=== PATIENT | female | born 1990 | race Caucasian/White ===

== ENCOUNTER 2017-05-31 11:15 | Emergency (ER) | payer OTHER ==
--- NOTE | 2017-05-31 11:51 | ED Physician Chart ---
Chief Complaint/HPI - Patient Information Date Seen:: 05/31/17 Time Seen:: 11:47 Chief Complaint:: abd p History of Present Illness:: pt began w rt side abd pain wed of last week. noted pain most when lying in bed has ache at rt side worse w mvt. no fever. no n/v/d. no constipation. no dysuria. lmp 2 wks ago was nrml...always has heavy menses w clots..never been dxd w fibroids/endometriosis. no back pain. no weakness. no abd sx hx. or hx of gallbladder troubles. pt took tylenol for MIRAMONTES last nt but no pain meds (or other meds) today Allergies:: Allergies Allergy/AdvReac Type Severity Reaction Status Date / Time No Known Allergies Allergy Verified 05/31/17 11:24 Vitals:: Vital Signs - 8 hr 05/31/17 11:25 Temp 98.3 F HR 84 RR 16 BP 131/81 O2 Sat % 100 Historian:: Patient Review of Systems - Review of Systems General/Constitutional: No fever, No chills, No weight loss, No weakness, No diaphoresis, No edema, No loss of appetite Skin: No skin lesions, No rash, No bruising Head: No headache, No light-headedness Eyes: No loss of vision, No pain, No diplopia ENT: No earache, No nasal drainage, No sore throat, No tinnitus Neck: No neck pain, No swelling, No thyromegaly, No stiffness, No mass noted Cardio Vascular: No chest pain, No palpitations, No PND, No orthopnea, No edema Pulmonary: No SOB, No cough, No sputum, No wheezing GI: No nausea, No vomiting, No diarrhea, Pain, No melena, No hematochezia, No constipation, No hematemesis G/U: No dysuria, No frequency, No hematuria Musculoskeletal: No bone or joint pain, No back pain, No muscle pain Endocrine: No polyuria, No polydipsia Psychiatric: No prior psych history, No depression, No anxiety, No suicidal ideation Hematopoietic: No bruising, No lymphadenopathy Allergic/Immuno: No urticaria, No angioedema Neurological: No syncope, No focal symptoms, No weakness, No paresthesia, No headache, No seizure, No dizziness, No confusion, No vertigo Past Medical History - Past Medical History Past Medical History: No significant medical hx Social History: Employed ( [employer] [place] [employer] employee) Medication: Reviewed Family Medical History - Family Member Father Hx Family Diabetes: Yes Physical Exam - Physical Examination General/Constitutional: Awake, Well-developed, well-nourished, Alert, No distress, GCS 15, Non-toxic appearing, Ambulatory Other Gen/Cons comments:: wn/wh, mild overwt. nontoxic. alert. Head: Atraumatic Eyes: Lids, conjuctiva normal, PERRL, EOMI Skin: Nl inspection, No rash, No skin lesions, No ecchymosis, Well hydrated, No lymphadenopathy ENMT: External ears, nose nl, Nasal exam nl, Lips, teeth, gums nl Neck: Nontender, Full ROM w/o pain, No JVD, No nuchal rigidity, No bruit, No mass, No stridor Respiratory: Nl effort/Exclusion, Clear to Auscultation, No Wheeze/Rhonchi/Rales Cardio Vascular: RRR, No murmur, gallop, rubs, NL S1 S2 GI: No organomegaly, No hernia, Normal BS's, Nondistended, No mass/bruits, No McBurney tenderness Other GI comments:: vague tndr to left upper and lower abd. pos nabs. no rebound. no masses. ? if slt schmidt sign. : No CVA tenderness Extremities: No tenderness or effusion, Full ROM, normal strength in all extremities, No edema, Normal digits & nails Neuro/Psych: Alert/oriented, DTR's symmetric, Normal sensory exam, Normal motor strength, Judgement/insight normal, Mood normal, Normal gait, No focal deficits Misc: normal gait, Normal back, No paraspinal tenderness Labs/Radiology/EKG Results - Lab Results Results: Laboratory Tests 05/31/17 05/31/17 05/31/17 11:50 11:50 11:54 WBC 6.7 RBC 5.00 Hgb 12.5 Hct 38.9 MCV 77.8 L MCH 24.9 L MCHC Differential 32.0 RDW 15.3 Plt Count 246 MPV 7.3 Neutrophils % 59.5 Lymphocytes % 32.6 Monocytes % 6.2 Eosinophils % 1.0 Basophils % 0.7 Sodium Potassium Chloride Carbon Dioxide Anion Gap BUN Creatinine Est GFR ( Amer) Est GFR (Non-Af Amer) BUN/Creatinine Ratio Glucose Calcium Total Bilirubin AST ALT Alkaline Phosphatase Total Protein Albumin Globulin Albumin/Globulin Ratio Lipase Urine Source CLEAN C Urine Color YELLOW Urine Clarity SL. CLOUDY Urine pH 6.5 Ur Specific [place] 1.015 Urine Protein NEGATIVE Urine Glucose (UA) NEGATIVE Urine Ketones NEGATIVE Urine Blood NEGATIVE Urine Nitrate NEGATIVE Urine Bilirubin NEGATIVE Urine Urobilinogen 0.2 Ur Leukocyte Esterase NEGATIVE Urine RBC NONE SEEN Urine WBC NONE SEEN Ur Epithelial Cells FEW Urine Bacteria FEW Urine Test NEGATIVE 05/31/17 11:54 WBC RBC Hgb Hct MCV MCH MCHC Differential RDW Plt Count MPV Neutrophils % Lymphocytes % Monocytes % Eosinophils % Basophils % Sodium 136 Potassium 3.8 Chloride 104 Carbon Dioxide 26.3 Anion Gap 9.5 BUN 9 Creatinine 0.5 L Est GFR ( Amer) > 60.0 Est GFR (Non-Af Amer) > 60.0 BUN/Creatinine Ratio 18.0 Glucose 93 Calcium 9.5 Total Bilirubin 0.5 AST 14 ALT 19 Alkaline Phosphatase 129 H Total Protein 7.2 Albumin 4.2 Globulin 3.0 Albumin/Globulin Ratio 1.4 Lipase 23 Urine Source Urine Color Urine Clarity Urine pH Ur Specific [place] Urine Protein Urine Glucose (UA) Urine Ketones Urine Blood Urine Nitrate Urine Bilirubin Urine Urobilinogen Ur Leukocyte Esterase Urine RBC Urine WBC Ur Epithelial Cells Urine Bacteria Urine Test - Radiology Results Results: us abd no ks, no gb dz, NAD?nrml. US pelvis- 3 ovarian cysts on right and 1 fibroid of uterous largest cyst 3.1cm. no sign of appy or inflamation in rlq. ED Septic Shock - . Is Septic Shock (SBP<90, OR Lactate>4 mmol\L) present?: No - <6hrs of presentation: Vital Signs: Vital Signs - 8 hr 05/31/17 11:25 Temp 98.3 F HR 84 RR 16 BP 131/81 O2 Sat % 100 Reassessment (Disposition) - Reassessment Reassessment:: results reviewed w pt. she asks for bcp rx as she wants to get started and wont see pmd till 2wks. also wedding is approaching in august and she wants to be out of sync w wedding by that time... rx ortho-novum x 2 mo supply. advise pt see pmd in 1-2 wks. or return if worse pain and fever or n/v/d..or else worse. sx of elvia kumar pt. Reassessment Condition:: Unchanged - Diagnosis Diagnosis:: 1 rt side adnexa x 3 ovarian cysts 2 endometriosis 3 abdominal pain - Aftercare/Follow up Instructions Aftercare/Follow-Up Instructions:: Counseled pt regarding lab results/diagnosis & need follow up - Patient Disposition Discharge/Transfer:: Home Condition at Disposition:: Improved
[2017-05-31 12:03] LABS: % BASOPHILS 0.7 % (0.0-2.0); % LYMPHOCYTES 32.6 % (20.0-50.0); % MONOCYTES 6.2 % (2.0-10.0); % NEUTROPHILS 59.5 % (40.0-80.0); HEMATOCRIT 38.9 % (35.0-45.0); HEMOGLOBIN 12.5 gm/dL (11.7-15.5); MEAN CELL VOLUME 77.8 fl (81-100); MEAN CORPUSCULAR HEMOGLOBIN 24.9 pg (27.0-31.0); MEAN PLATELET VOLUME 7.3 fl; PLATELET COUNT 246 Th/cmm (150-400); RED CELL DISTRIBUTION WIDTH 15.3 % (11.5-20.0); WHITE BLOOD COUNT 6.7 Th/cmm (4.8-10.8)
[2017-05-31 12:08] LABS: URINE BILIRUBIN NEGATIVE (NEGATIVE); URINE BLOOD NEGATIVE (NEGATIVE); URINE GLUCOSE (UA) NEGATIVE (NEGATIVE); URINE KETONE NEGATIVE (NEGATIVE); URINE PH 6.5 (4.6 - 8.0); URINE PROTEIN NEGATIVE (NEGATIVE); URINE UROBILINOGEN 0.2 E.U./dL (0.2 - 1.0)
[2017-05-31 12:13] LABS: URINE COLOR YELLOW
[2017-05-31 12:19] LABS: ALB/GLOB RATIO 1.4 (1.0-1.8); ALKALINE PHOSPHATASE 129 U/L (34-104); ANION GAP 9.5 (7.0-16.0); BILIRUBIN,TOTAL 0.5 mg/dL (0.3-1.0); BUN - UREA NITROGEN 9 mg/dL (7-25); CALCIUM SERUM 9.5 mg/dL (8.6-10.3); CARBON DIOXIDE 26.3 mEq/L (21.0-31.0); CHLORIDE 104 mEq/L (98-107); CREATININE - SERUM 0.5 mg/dL (0.6-1.2); GLUCOSE 93 mg/dL (70-105); LIPASE 23 U/L (11-82); POTASSIUM SERUM 3.8 mEq/L (3.5-5.1); SGOT 14 U/L (13-39); SGPT/ALT 19 U/L (7-52); SODIUM SERUM 136 mEq/L (136-145)
[2017-05-31 12:19] LABS: URINE BACTERIA FEW /hpf (NONE SEEN); URINE EPITHELIAL CELLS FEW /lpf (FEW); URINE RBC NONE SEEN /hpf (0-5); URINE WBC NONE SEEN /hpf (0-5)
--- NOTE | 2017-05-31 14:21 | Diagnostic Imaging Report ---
Ultrasound abdomen HISTORY: Right flank pain for 6 days COMPARISON: Pelvic ultrasound the same day Technique: Sonography of the abdomen was performed in multiple planes. FINDINGS: The liver demonstrates normal echogenicity with no evidence of focal lesions. The liver measures 15 cm. No evidence of gallstones or gallbladder wall thickening. The common bile duct measures 3 mm. Evaluation of the pancreas is limited due to bowel gas. The right kidney measures 9.9 cm. There is fullness of the right renal collecting system without evidence of antony hydronephrosis. No sonographic evidence of renal stones. The left kidney measures 9.7 cm. No evidence of focal lesions or hydronephrosis. The spleen measures 10.2 cm. The visualized portions of the abdominal aorta are within normal limits in size. IMPRESSION: Fullness of the right renal collecting system without evidence of antony hydronephrosis. No sonographic evidence of renal stones. If necessary CT follow-up may also be obtained. No evidence of gallstones.
--- NOTE | 2017-05-31 14:31 | Diagnostic Imaging Report ---
Ultrasound pelvis HISTORY: Right-sided abdominal pain. LMP is 05/26/2017 COMPARISON: None Technique: Longitudinal and transverse sonographic sector images of the pelvis were obtained transabdominally and transvaginally. FINDINGS: The uterus measures 8.6 x 4.4 x 3.7 cm. Endometrial echo complex measures 6 mm. There is a hypoechoic area within the fundal portion of uterus measuring 1.7 cm. There is trace fluid in the endocervical canal. The right ovary measures 4.8 x 3.6 cm. Multiple right ovarian cystic lesions are seen the largest measuring 3.1 cm with internal echoes. The left ovary measures 1.9 x 1.5 cm demonstrate small follicular cysts. Vascular flow to ovaries is noted. No evidence of free fluid in the pelvis. IMPRESSION: Multiple Right ovarian cystic lesions the largest measuring 3.1 cm. Internal echoes may be due to proteinaceous or hemorrhagic components. Other less likely etiologies include an endometrioma. Clinical correlation and short-term follow-up with short-term follow-up ultrasound in 4 to 6 weeks is recommended to ensure resolution of these findings and to exclude much less likelihood of cystic neoplastic processes. 1.7 cm heterogeneous area along the fundal portion of uterus. A small fibroid cannot be excluded. Trace fluid in the endocervical canal. No evidence of free fluid in the pelvis.
== END 2017-05-31 14:33 | disposition home or self-care (01) ==
LOC: ER 11:15
DX: N83.201 Unspecified ovarian cyst, right side (principal); N80.9 Endometriosis, unspecified; R10.12 Left upper quadrant pain; R10.32 Left lower quadrant pain
CPT/HCPCS: 36415-UA; 76700-TC; 76856-TC; 80053-TC; 81001-TC; 81025-TC; 83690-TC; 85025-TC

== ENCOUNTER 2019-03-30 06:39 | Outpatient (CLI) | payer OTHER ==
[2019-03-30 06:55] LABS: URINE SOURCE CLEAN C
[2019-03-30 07:17] LABS: % BASOPHILS 0.9 % (0.0-2.0); % LYMPHOCYTES 37.2 % (20.0-50.0); % MONOCYTES 5.8 % (2.0-10.0); % NEUTROPHILS 55.1 % (40.0-80.0); BASOPHILE ABSOLUTE 0.1 Th/cumm (0-0.2); EOSINOPHILE ABSOLUTE 0.1 Th/cmm (0.1-0.4); HEMATOCRIT 42.1 % (41.0-60); HEMOGLOBIN 14.1 gm/dL (12-16); LYMPHOCYTE ABSOLUTE 2.5 Th/cmm (1.5-3.0); MEAN CELL VOLUME 83.5 fl (81-100); MEAN CORPUSCULAR HGB CONC 33.5 pg (28.0-36.0); MONOCYTE ABSOLUTE 0.4 Th/cmm (0.3-1.0); NEUTROPHILE ABSOLUTE 3.7 Th/cmm (1.8-8.0); PLATELET COUNT 249 Th/cmm (150-400); RED BLOOD COUNT 5.03 Mil/cmm (3.80-5.10); RED CELL DISTRIBUTION WIDTH 12.8 % (11.5-20.0); WHITE BLOOD COUNT 6.8 Th/cmm (4.8-10.8)
[2019-03-30 07:39] LABS: URINE BILIRUBIN NEGATIVE (NEGATIVE); URINE BLOOD NEGATIVE (NEGATIVE); URINE GLUCOSE (UA) NEGATIVE (NEGATIVE); URINE KETONE NEGATIVE (NEGATIVE); URINE LEUKOCYTE ESTERASE NEGATIVE (NEGATIVE); URINE NITRATE NEGATIVE (NEGATIVE); URINE PROTEIN NEGATIVE (NEGATIVE); URINE UROBILINOGEN 0.2 E.U./dL (0.2 - 1.0)
[2019-03-30 07:50] LABS: ALB/GLOB RATIO 1.6 (1.0-1.8); ALBUMIN 4.2 gm/dL (3.7-5.3); ALKALINE PHOSPHATASE 125 U/L (34-104); ANION GAP 12.1 (7.0-16.0); BILIRUBIN,TOTAL 0.4 mg/dL (0.3-1.0); BUN - UREA NITROGEN 12 mg/dL (7-25); CALCIUM SERUM 9.3 mg/dL (8.6-10.3); CARBON DIOXIDE 25.6 mEq/L (21.0-31.0); CHLORIDE 104 mEq/L (98-107); CHOLESTEROL 213 mg/dL (<200); CREATININE - SERUM 0.6 mg/dL (0.6-1.2); GFR AFRICAN-AMERICAN > 60.0 ml/min (>90); GFR NON AFRICAN-AMERICAN > 60.0 ml/min; GLUCOSE 102 mg/dL (70-105); HDL -HIGH DENSITY LIPOPROTEIN 54 mg/dL (23-92); MAGNESIUM 2.1 mg/dL (1.9-2.7); POTASSIUM SERUM 3.7 mEq/L (3.5-5.1); SGOT 24 U/L (13-39); SGPT/ALT 40 U/L (7-52); SODIUM SERUM 138 mEq/L (136-145); TOTAL PROTEIN,SERUM 6.8 gm/dL (6.0-8.3); TRIGLYCERIDES 150 mg/dL (<150)
[2019-03-30 07:51] LABS: URINE CLARITY CLEAR (CLEAR); URINE COLOR YELLOW; URINE MICROSCOPIC INDICATED? NO
--- NOTE | 2019-03-30 10:00 | Diagnostic Imaging Report ---
Exam: Ultrasound summation of thyroid gland HISTORY: Thyromegaly. Findings: Real-time ultrasound examination of thyroid gland. Multiple planes. The study demonstrates a normal echogenicity thyroid gland throughout. The right lobe of thyroid measuring 1.9 x 4 x 1.7 cm diameter left lobe of thyroid measures 1.4 x 3.9 x 1.4 cm diameter. These was intact. The vascular structures are normal. IMPRESSION: Essentially Unremarkable examination of the thyroid gland.
[2019-03-31 23:04] LABS: T4 FREE 1.24 ng/dL (0.82-1.77)
[2019-04-03 11:14] LABS: A1C 5.6
== END 2019-03-30 09:35 | disposition home or self-care (01) ==
LOC: LAB 06:39
PROVIDERS: ATTEND General Practice
DX: J35.1 Hypertrophy of tonsils (principal)
CPT/HCPCS: 36415-UA; 76536-TC; 80053-TC; 80061-TC; 81003-TC; 82607-90; 83036-90; 83735-TC; 84207-90; 84439-90; 84443-TC; 84445-90; 85025-TC